=== PATIENT | female | born 1985 ===

== ENCOUNTER 2021-06-08 15:30 | Day surgery (SDC) | payer BC ==
--- NOTE | 2021-06-08 10:06 | P.GSHP ---
History of Present Illness H&P Date: 06/07/21 Chief Complaint: Left renal colic The patient is a 35-year-old white female with no prior history of urolithiasis. She presents with a two-month history of intermittent left lower back pain radiating to the left lower quadrant. An abdominal x-ray performed on 05/14/2021 showed an 8 mm left proximal ureteral calculus. Her pain has persisted. She has been offered the options of continued medical expulsion therapy, extracorporal shockwave lithotripsy (ESWL), and ureteroscopy with laser lithotripsy. The pros, cons, and risks of each approach have been reviewed in detail. She has elected to undergo the latter. - Constitutional Constitutional: Denies chills, Denies fever - Gastrointestinal Gastrointestinal: Reports nausea, Denies vomiting - Genitourinary (Female) Genitourinary: Reports flank pain, Reports kidney stones, Denies hematuria Past Medical History Past Surgical History: No Surgical Hx Reported Smoking Status: Never smoker Medications and Allergies Allergies Allergy/AdvReac Type Severity Reaction Status Date / Time oxytocin [From Pitocin] Allergy Unknown Verified 06/07/21 23:55 Surgical - Exam - General well developed, well nourished, no distress - Neck no masses, trachea midline - Respiratory normal respiratory effort, clear to auscultation - Cardiovascular Rhythm: regular Abnormal Heart Sounds: no systolic murmur, no diastolic murmur, no rub, no S3 Gallop, no S4 Gallop, no click, no other - Abdomen Abdomen: soft, tender (LLQ tenderness), no guarding, no rigid, no rebound - Psychiatric oriented to time, oriented to person, oriented to place, speech is normal, memory intact Results - Imaging Abdominal x-ray: report reviewed, image reviewed Assessment and Plan (1) Calculus of ureter Status: Acute Code(s): N20.1 - CALCULUS OF URETER SNOMED Code(s): 97455979 Plan: A preoperative KUB x-ray will be obtained. The patient will undergo cystoscopy, left ureteroscopy with holmium laser lithotripsy and possible stone basketing, left ureteral stent insertion. The procedure has been reviewed in detail with the patient. Potential risks of been discussed, which include anesthesia, infection, inability to successfully remove the calculus, and ureteral injury. The possible need for secondary treatment has been discussed, and she has been made aware of the fact that some patients experience postoperative pain resulting from a ureteral stent.
--- NOTE | 2021-06-08 16:02 | XR ---
EXAMINATION TYPE: XR KUB DATE OF EXAM: 06/08/2021 HISTORY: Pain Comparison: None.Single KUB is submitted for interpretation. Findings: Right renal calculi: None Visualized. Right ureteral calculi: None Visualized. Left renal calculi: Left renal calculus measuring 8.1 mm. Left ureteral calculi: None Visualized. Pelvic calcifications: Suspect multiple pelvic phleboliths. Bowel gas pattern is unremarkable. No free air. No mass effects. IUD noted to be in place. IMPRESSION: 1. Left renal calculus measuring 8.1 mm
[2021-06-08] MEDS ORDERED: LACTATED RINGERS 1,000 ML IV ONE (16:10)
[2021-06-08] MEDS ORDERED: ONDANSETRON 4 MG/2 ML VIAL ONE ×2 (16:30→18:20)
[2021-06-08] MEDS ORDERED: ONDANSETRON 4 MG/2 ML VIAL IVP ONE ×2 (16:33→19:37)
[2021-06-08] MEDS ORDERED: DEXAMETHASONE SOD PHOSPHATE 4 MG/ML 1 ML VIAL IVP ONE (16:33)
[2021-06-08] MEDS ORDERED: PROPOFOL 10 MG/ML 20 ML VIAL IV ONE (18:20)
[2021-06-08] MEDS ORDERED: MIDAZOLAM 2 MG/2 ML VIAL ONE (18:20)
[2021-06-08] MEDS ORDERED: KETOROLAC 15 MG/ML 1 ML VIAL ONE (18:20)
[2021-06-08] MEDS ORDERED: fentaNYL (PF) 50 MCG/ML 2 ML AMP ONE (18:20)
--- NOTE | 2021-06-08 19:25 | P.OP ---
Date of Procedure: 06/08/21 Preoperative Diagnosis: Left renal calculus Postoperative Diagnosis: Same Procedure(s) Performed: Cystoscopy, left ureteroscopy with Holmium laser lithotripsy, left ureteral stent insertion Anesthesia: HANYA Surgeon: Sarath Crum Estimated Blood Loss (ml): 5 IV fluids (ml): 500 Pathology: none sent Condition: stable Disposition: PACU Indications for Procedure: The patient is a 35-year-old white female with no prior history of urolithiasis. She presents with a two-month history of intermittent left lower back pain radiating to the left lower quadrant. An abdominal x-ray performed on 05/14/2021 showed an 8 mm left proximal ureteral calculus. Her pain has persisted. She has been offered the options of continued medical expulsion therapy, extracorporal shockwave lithotripsy (ESWL), and ureteroscopy with laser lithotripsy. The pros, cons, and risks of each approach have been reviewed in detail. She has elected to undergo the latter. The preoperative KUB x-ray shows that the calculus has refluxed back into the kidney. Operative Findings: Left renal pelvic calculus, fragmented completely. Description of Procedure: The patient was taken to the operating room and placed in the dorsolithotomy position, with legs supported in Huang stirrups. The external genitalia was prepped and draped sterilely. The 30 lens was used to introduce the 21-[place]ib[place] Guzmán cystoscopic sheath through the urethra and into the bladder under direct vision. The bladder was examined in its entirety. Both ureteral orifices were normal anatomic location and configuration, and clear urine effluxed from both. No tumors or foreign bodies were seen. A 0.038 inch Glidewire was passed through the cystoscope. The ureteral orifice was cannulated, and the Glidewire was advanced up to the renal pelvis. The cystoscope was removed, and an 11/13- [place]ib[place]ian ureteral access catheter was passed over the wire, up to the proximal ureter. The flexible ureteroscope was then passed through the ureteral access catheter sheath, up to the left renal pelvis. The calculus was identified, and the 272 micron Holmium laser probe was passed through the ureteroscope. Lithotripsy was performed utilizing a dusting technique. The calculus was andrew to fragmenting and appeared to be composed of calcium oxalate dihydrate.. Small calculus fragments passed into an upper pole calyx, where lithotripsy was completed until there were no residual calculus fragments exceeding the size of the laser fiber tip. The ureteroscope was removed. The Glidewire was passed through the ureteral access catheter sheath, which was removed. The Glidewire was backloaded into the cystoscope, which was passed into the bladder. A 24 cm, 4.8-Djiboutian double-J ureteral stent was placed over the wire. Proper stent positioning was verified fluoroscopically and endoscopically. The bladder was emptied and the cystoscope removed. The patient tolerated the procedure well and was taken to the recovery room in stable condition. [facility] [place]: Procedure Acuity: Semi-Urgent Stone Size and Location: 8 mm, left renal pelvis Ureteral Dilation: No Ureteral Access Sheath Used: Yes Stone Sent for Analysis: No All Stones/Fragments Were Removed with a Basket: No Complications: No Preoperative Antibiotics Given: Yes Stent Placed: Yes If Stent Placed, Was String Left Attached: No If Stent Placed, When is it to be Removed: 1 week Discharge Medications: Tamsulosin
[2021-06-08] MEDS ORDERED: HYDROmorphone 0.5 MG/0.5 ML SYRINGE IVP ONE (19:37)
[2021-06-08 20:42] VITALS: BP 119/71; PULSE 73; RESP 14; TEMP 98.2
--- NOTE | 2021-06-11 09:26 | FL ---
Fluoroscopy History: lithotripsy of left ureteral stone with stent placement 33 seconds of fluoroscopic time
== END 2021-06-08 23:34 | disposition home or self-care (01) ==
LOC: OR 15:30 → 6NMEDSUR 19:49 → OR 23:34
PROVIDERS: ATTEND Urology
DX: N20.2 Calculus of kidney with calculus of ureter (principal)
CPT/HCPCS: 50590; 50605; 52005; S2070; 74018

== ENCOUNTER 2021-12-12 07:49 | Day surgery (SDC) | payer BC ==
[~2021-12-12 07:49] MED LIST: LACTATED RINGERS 1,000 ML IV SCH; LIDOCAINE 1% (10MG/ML) FOR IV START INTRADERMA PRN
[2021-12-12 08:17] VITALS: TEMP 98.2
[2021-12-12] MEDS ORDERED: LIDOCAINE 1% INJ 10MG/ML (20 ML MDV) ONE (08:50)
[2021-12-12] MEDS ORDERED: PROPOFOL 10 MG/ML 20 ML VIAL IV ONE (08:50)
--- NOTE | 2021-12-12 09:06 | P.PCN ---
Date of Procedure: 12/12/21 Procedure(s) Performed: BRIEF HISTORY: Patient is a 36-year-old pleasant white female scheduled for an elective colonoscopy as a part of screening for colon cancer and family history of colon cancer. The patient has been testing done indefinitely was positive and she was recommended to have screening colonoscopy starting at age 35. PROCEDURE PERFORMED: Colonoscopy with snare polypectomy. PREOPERATIVE DIAGNOSIS: Screening for colon cancer/family history of colon cancer. IV sedation per Anesthesia. PROCEDURE: After informed consent was obtained, the patient, was brought into the endoscopy unit. IV sedation was administered by Anesthesia under continuous monitoring. Digital rectal examination was normal. Initially the Olympus CF-160 flexible video colonoscope was then inserted in the rectum, gradually advanced into the cecum without any difficulty. Careful examination was performed as the scope was gradually being withdrawn. Ileocecal valve and the appendiceal orifice were visualized and appeared normal. Prep was excellent. Mucosa of the cecum, ascending colon, appeared normal. Descending colon there was a 3 mm sessile polyp removed by snare polypectomy. In the hepatic flexure there was a 5 mm sessile polyp removed by snare polypectomy. transverse colon, descending colon, sigmoid colon, and rectum appeared normal. Retroflexion was performed in the rectum and no lesions were seen. The patient tolerated the procedure well. IMPRESSION: 5 mm hepatic flexure polyp status post polypectomy 3 mm ascending colon polyp status post polypectomy RECOMMENDATIONS: Findings of this examination were discussed with the patient as well as a family. She was advised to follow with the biopsy results. If the biopsy results adenoma she can have a repeat colonoscopy in 5 years.
[2021-12-12 09:34] VITALS: BP 102/58; PULSE 75; RESP 16
== END 2021-12-12 09:48 | disposition home or self-care (01) ==
LOC: ORWHC2ENDO 07:49
PROVIDERS: ATTEND Internal Medicine Gastroenterology
DX: Z80.0 Family history of malignant neoplasm of digestive organs (principal); Z12.11 Encounter for screening for malignant neoplasm of colon; D12.3 Benign neoplasm of transverse colon; K63.5 Polyp of colon; Z79.899 Other long term (current) drug therapy; J45.990 Exercise induced bronchospasm; Z88.5 Allergy status to narcotic agent
CPT/HCPCS: 81025; 88305; 45385; J2001; J2704